=== PATIENT | female | born 1985 | race Caucasian/White ===

== ENCOUNTER 2017-05-27 19:18 | Emergency (ER) | payer OTHER ==
[~2017-05-27] VITALS: Ht 162.6 cm; Wt 59.1 kg
[2017-05-27] MEDS ORDERED: SODIUM CHLORIDE 0.9% 1,000 ML IV ONE (20:04)
[2017-05-27] MEDS ORDERED: ASPIRIN 81 MG TABLET CHEW ONE (20:23)
[2017-05-27] MEDS ORDERED: ASPIRIN 81 MG TABLET CHEW PO ONE (20:30)
[2017-05-27] MEDS ORDERED: MAGNESIUM SULFATE 1 GM in SODIUM CHLORIDE 0.9% 50 ML IVPB ONE (20:30)
[2017-05-27] MEDS: PLEASE ENTER ALLERGIES MC SCH ×4 (20:30→22:18)
[2017-05-27 20:48] LABS: HEMATOCRIT 42.7 % (34.6-47.8); HEMOGLOBIN 14.4 g/dL (11.7-16.4); WHITE BLOOD COUNT 6.8 x10^3/uL (3.4-10)
[2017-05-27 21:00] LABS: ASPARTATE AMINO TRANSFERASE 17 U/L (15-37); BLOOD UREA NITROGEN 8 mg/dL (7-18)
[2017-05-27 21:07] LABS: IS PT STATUS REG ER OR PRE ER? YES
[2017-05-27 22:18] VITALS: BP 119/74
== END 2017-05-27 22:20 | disposition home or self-care (01) ==
LOC: ED 21:14
DX: R00.2 Palpitations (principal)
CPT/HCPCS: 36415; 71010; 80053; 83735; 84436; 84443; 84484; 85025; 85610; 93005; 96365; 96366; 99285; J3475; J7030